=== PATIENT | female | born 1945 | race Caucasian/White ===

== ENCOUNTER 2017-09-25 06:44 | Day surgery (SDC) | payer MEDICARE, MEDICAID ==
[~2017-09-25] VITALS: Ht 162.6 cm; Wt 92.3 kg
[2017-09-25] MEDS ORDERED: FENTANYL PF 100 MCG/2ML ONE (07:27)
[2017-09-25] MEDS ORDERED: MIDAZOLAM 1 MG/ML, 2ML ONE (07:27)
[2017-09-25] MEDS ORDERED: LIDOCAINE 1%-EPI 1:100K, 30ML ONE (07:41)
[2017-09-25] MEDS ORDERED: BUPIVACAINE/PF-EPI 0.5% 1:200K ONE (07:41)
[2017-09-25 07:43] VITALS: BP 149/76
[2017-09-25] MEDS ORDERED: LACTATED RINGERS 1,000 ML IV SCH (07:46)
[2017-09-25] MEDS ORDERED: OMEP-110 PO (07:59)
[2017-09-25] MEDS ORDERED: PREG100C PO (07:59)
[2017-09-25] MEDS ORDERED: OXYC-432 PO (07:59)
[2017-09-25] MEDS ORDERED: ONDA4TAB12 PO (07:59)
[2017-09-25] MEDS ORDERED: BUPR150T20 PO (07:59)
[2017-09-25] MEDS ORDERED: FLUT50DI INH (07:59)
[2017-09-25] MEDS ORDERED: ROPI1TAB2 PO (07:59)
[2017-09-25] MEDS ORDERED: ASPI-496 PO (07:59)
[2017-09-25] MEDS ORDERED: POTA10TA31 PO (07:59)
[2017-09-25] MEDS ORDERED: CYAN1TAB29 PO (07:59)
[2017-09-25] MEDS ORDERED: POLY454P3 PO (07:59)
[2017-09-25] MEDS ORDERED: OMEG1CAP6 PO (07:59)
[2017-09-25] MEDS ORDERED: LEVO112T4 PO (07:59)
[2017-09-25] MEDS ORDERED: SITA1TAB5 PO (07:59)
[2017-09-25] MEDS ORDERED: SIMV40TA3 PO (07:59)
[2017-09-25] MEDS ORDERED: IPRA4AER INH (07:59)
[2017-09-25] MEDS ORDERED: MAGN400T36 PO (07:59)
[2017-09-25] MEDS ORDERED: FLUT1DIS5 IH (07:59)
[2017-09-25] MEDS ORDERED: GABAPENTIN 300 MG CAPSULE PO ONE (08:00)
[2017-09-25] MEDS ORDERED: ACETAMINOPHEN 500 MG TABLET PO ONE (08:00)
[2017-09-25] MEDS ORDERED: CLINDAMYCIN 150 MG/ML, 6ML ONE (08:14)
[2017-09-25 08:31] LABS: ALANINE AMINOTRANSFERASE 30 U/L (12-78); ALBUMIN 3.4 g/dL (3.4-5.0); ANION GAP 6 mmol/L (5-15); CALCIUM 8.7 mg/dL (8.5-10.1); CHLORIDE 108 mmol/L (98-107); CREATININE 0.83 mg/dL (0.55-1.02)
[2017-09-25 08:33] LABS: ALKALINE PHOSPHATASE 136 U/L (45-117); BILIRUBIN,TOTAL 0.3 mg/dL (0.2-1.0); TOTAL PROTEIN 7.4 g/dL (6.4-8.2)
[2017-09-25] MEDS ORDERED: MIDAZOLAM 1 MG/ML, 2ML IV PRN (09:00)
[2017-09-25] MEDS ORDERED: HYDROmorphone 1 MG/ML, 1ML IV PRN (09:00)
[2017-09-25] MEDS ORDERED: MEPERIDINE/PF 25MG/0.5ML IVPush PRN (09:00)
[2017-09-25] MEDS ORDERED: OXYcodone 5 MG/5 ML ORAL.SOL UDC PO PRN (09:00)
[2017-09-25] MEDS ORDERED: PROMETHAZINE 25 MG/ML, 1ML IV PRN (09:00)
[2017-09-25] MEDS ORDERED: LABETALOL 5MG/ML, 20ML IV PRN (09:00)
[2017-09-25] MEDS ORDERED: METOCLOPRAMIDE 5 MG/ML, 2ML IV PRN (09:00)
[2017-09-25] MEDS ORDERED: FENTANYL PF 100 MCG/2ML IV PRN (09:00)
[2017-09-25] MEDS ORDERED: ONDANSETRON 2MG/ML, 2ML IV PRN (09:00)
[2017-09-25] MEDS ORDERED: ALBUTEROL/IPRATROPIUM 2.5MG/0.5MG, 3 ML NPPB PRN (09:00)
[2017-09-25] MEDS ORDERED: SCOPOLAMINE PATCH, 1.5MG PATCH.TD72 TD PRN (09:00)
[2017-09-25] MEDS ORDERED: EPHEDRINE 50 MG/ML, 1ML IM PRN (09:00)
[2017-09-25] MEDS ORDERED: BUPIVACAINE/PF 0.5% ONE (09:32)
[2017-09-25] MEDS ORDERED: KETOROLAC 30 MG/1 ML ONE (09:32)
[2017-09-25] MEDS ORDERED: LIDOCAINE-MPF 2% ,5ML ONE (09:32)
[2017-09-25] MEDS ORDERED: DEXAMETHASONE 4 MG/ML, 1ML ONE (09:33)
[2017-09-25] MEDS ORDERED: SUCCINYLCHOLINE 20 MG/ML, 10ML ONE (09:33)
[2017-09-25] MEDS ORDERED: PROPOFOL 10 MG/ML, 20ML ONE (09:33)
[2017-09-25] MEDS ORDERED: ONDANSETRON 2MG/ML, 2ML ONE (09:33)
[2017-09-25] MEDS ORDERED: OXYcodone 5 MG/5 ML ORAL.SOL UDC ONE (10:48)
== END 2017-09-25 12:35 ==
LOC: OUT 06:44
PROVIDERS: ATTEND Orthopaedic Surgery
DX: S43.432A Superior glenoid labrum lesion of left shoulder, initial encounter (principal); M75.42 Impingement syndrome of left shoulder; M19.012 Primary osteoarthritis, left shoulder; M65.862 Other synovitis and tenosynovitis, left lower leg; J44.9 Chronic obstructive pulmonary disease, unspecified; E11.9 Type 2 diabetes mellitus without complications; I10 Essential (primary) hypertension; F32.9 Major depressive disorder, single episode, unspecified; K21.9 Gastro-esophageal reflux disease without esophagitis; E03.9 Hypothyroidism, unspecified; X58.XXXA Exposure to other specified factors, initial encounter; Y93.89 Activity, other specified; Y92.89 Other specified places as the place of occurrence of the external cause; Y99.8 Other external cause status; Z88.1 Allergy status to other antibiotic agents; Z88.0 Allergy status to penicillin; Z88.8 Allergy status to other drugs, medicaments and biological substances; Z86.718 Personal history of other venous thrombosis and embolism; Z86.73 Personal history of transient ischemic attack (TIA), and cerebral infarction without residual deficits; Z88.5 Allergy status to narcotic agent
CPT/HCPCS: 29823; 29824; 29826; 29827; 29828; 36415; 64415; 80053; 82962; 93005; C1713; J0330; J1100; J1885; J2250; J2405; J2704; J3010; J3490; J7120